=== PATIENT | male | born 1960 | race Caucasian/White ===

== ENCOUNTER → 2023-03-10 | Outpatient (CLI) | payer BC ==
--- NOTE | 2023-03-10 11:02 | CT ---
EXAMINATION TYPE: CT lumbar spine wo con DATE OF EXAM: 03/10/2023 COMPARISON: X-ray 02/24/2023 HISTORY: Other spondylosis with radiculopathy CT DLP: 1064.80 mGycm CONTRAST: None TECHNIQUE: CT of the lumbar spine is performed on a spiral scan at 3 mm thick sections. Reconstructed images are performed in the coronal and sagittal planes. FINDINGS: T12-L1: No focal disc herniation or significant disc bulge is evident. No spinal canal stenosis or neural foraminal stenosis is present. L1-L2: Broad-based disc bulge is present with moderate anterior thecal sac flattening. No AP spinal c anal stenosis is present. Neural foramen are patent. L2-L3: Minimal disc bulge has anterior thecal sac flattening. No AP spinal canal stenosis is present. Neural foramen are patent. L3-L4: Broad-based disc bulge has mild anterior thecal sac flattening. Disc material has some extensi on beyond the L4 endplate. Facet hypertrophy and ligamentum flavum laxity is present with some meat service team member ior lateral thecal sac compression. There is some mild canal narrowing. Moderate bilateral foraminal stenosis is present. L4-L5: Minimal grade 1 spondylolisthesis is present. Disc uncovering is present with moderate anterio r thecal sac compression. Facet hypertrophy and ligamentum flavum laxity are contributing to spinal c anal stenosis predominantly within the lateral dimension. Moderate right and left foraminal stenosis is present. L5-S1: No focal disc herniation or significant disc bulge is evident. No spinal canal stenosis or n eural foraminal stenosis is present IMPRESSION: 1. Spondylolisthesis of L4 anterior on L5 with disc uncovering. 2. Disc uncovering with facet hypertrophy and ligamentum flavum laxity at L4-5 contributing to spinal canal stenosis, greater in the lateral dimension. 3. Mild spinal canal narrowing L3-4 due to disc bulging and facet hypertrophy. 4. Foraminal stenosis L3-4 L4-5 bilaterally
== END | disposition home or self-care (01) ==
LOC: RADCTMAIN 07:58
PROVIDERS: ATTEND Orthopaedic Surgery
DX: M47.26 Other spondylosis with radiculopathy, lumbar region (principal); M43.16 Spondylolisthesis, lumbar region; M51.16 Intervertebral disc disorders with radiculopathy, lumbar region; M99.73 Connective tissue and disc stenosis of intervertebral foramina of lumbar region
CPT/HCPCS: 72131

== ENCOUNTER → 2023-08-11 | Outpatient (CLI) | payer BC ==
[2023-08-11 15:01] LABS: ALT 45 U/L (10-49); AST 24 U/L (14-35); Albumin 4.6 g/dL (3.8-4.9); Alkaline Phosphatase 54 U/L (41-126); BUN/Creat Ratio 14.75 Ratio (12.00-20.00); Blood Urea Nitrogen 11.8 mg/dL (9.0-27.0); Calcium 9.9 mg/dL (8.7-10.3); Carbon Dioxide 22.6 mmol/L (21.6-31.8); Chloride 104 mmol/L (96-109); Glucose 157 mg/dL (70-110); Potassium 4.8 mmol/L (3.5-5.5); Sodium 140 mmol/L (135-145); Total Bilirubin 0.4 mg/dL (0.3-1.2); Total Protein 6.6 g/dL (6.2-8.2)
[2023-08-11 16:34] LABS: HCT 47.4 % (39.6-50.0); HGB 15.3 g/dL (13.0-17.0); MCHC 32.3 g/dL (32.0-37.0); MCV 86.8 FL (80.0-97.0); Mean Platelet Volume 10.5 FL (9.5-12.2); NRBC Per 100 WBC 0 X 10*3/uL (0.00-0.01); Platelet Count 197 X 10*3/uL (140-440); RBC 5.46 X 10*6/uL (4.40-5.60); WBC 9.56 X 10*3/uL (4.50-10.00)
[2023-08-11 20:13] LABS: INR 1.01 sec (0.93-1.11); Prothrombin Time 10.9 sec (9.9-11.9)
== END | disposition home or self-care (01) ==
LOC: LABWHC1 10:21
PROVIDERS: ATTEND Orthopaedic Surgery
DX: M43.16 Spondylolisthesis, lumbar region (principal); M47.26 Other spondylosis with radiculopathy, lumbar region; M48.061 Spinal stenosis, lumbar region without neurogenic claudication
CPT/HCPCS: 36415; 80053; 82306; 85027; 85610

== ENCOUNTER → 2023-08-11 | Outpatient (CLI) | payer BC | END | disposition home or self-care (01) | LOC: LABPAT 10:28 | PROVIDERS: ATTEND Orthopaedic Surgery | DX: Z01.812 Encounter for preprocedural laboratory examination (principal); Z22.322 Carrier or suspected carrier of Methicillin resistant Staphylococcus aureus; M43.16 Spondylolisthesis, lumbar region; M47.26 Other spondylosis with radiculopathy, lumbar region; M48.061 Spinal stenosis, lumbar region without neurogenic claudication | CPT/HCPCS: 86850; 86900; 86901; 87070 ==

== ENCOUNTER 2023-08-18 09:24 | Observation (INO) | payer BC ==
[2023-08-11 11:40] VITALS: BMI 29.2
--- NOTE | 2023-08-18 07:41 | P.HPOR ---
History of Present Illness H&P Date: 08/11/23 .D:Date: 08/11/23 : 09:04am .T:Title: [facility] History and Physical Date of :60 [id number]: NKDA Age: 63 year Height: 5'9" Weight: 200 lbs BMI: 29.53 kg/m2 Occupation: Retired VAS: 3 Hand:Right IMPRESSION: It was my pleasure to have seen and examined Xavi. I reviewed the patient's clinical syndrome, physical findings, and imaging studies during the appointment today. It is my impression that the patient has a diagnosis of. 1. Grade I spondylolisthesis of L4 on L5 2. L4-5 spondylosis and stenosis 3. Right lower extremity radiculopathy 4. Low back pain I outlined the natural course history without intervention and various interventional options. Spine Surgery Risk Review Mr. Smith is presenting for evaluation of low back and right lower extremity pain, right lower extremity numbness and tingling. It was my pleasure to have seen and examined Mr. Smith. In our visit today we have had a chance to go over subjective complaints, physical examination findings and treatments including the natural course history without intervention and various interventional options. The patients imaging demonstrates: XRay Lumbar Multiview (AP, Lateral, Flexion, Extension) with AP pelvis; 5 views taken at [facility] on 02/24/23: - Images re-reviewed with the patient today. moderate multilevel spondylitic and degenerative changes with preserved alignment. Multilevel diminished disc height. Grade 1 retrolisthesis L1 onto L2. Grade 1 anterolisthesis L4 and L5. Vertebral body heights are preserved. No acute osseous abnormalities. Pelvis: The visualized sacrum and iliac wings are within normal limits. MRI scancompleted at [id number]/23 [facility]: - Images re-reviewed with the patient today. Impression: 1. L1-L2: 2-3 mm broad-based disc herniation effaces the ventral surface of the thecal sac resulting in moderate bilateral neural foraminal encroachment and bilateral exiting L1 nerve impingement conjunction with facet arthrosis. Mild canal stenosis is seen. 2. L2-L3: 2 mm left paracentral disc herniation effaces the ventral surface of the thecal sac resulting in mild left neural foraminal encroachment left exiting L2 nerve impingement in conjunction with facet arthrosis. 3. L3-L4: Posterior annular tears seen within the intravertebral disc. 3-4 mm broad-based disc herniation effaces the ventral surface of the thecal sac resulting in moderate to severe bilateral neural foraminal encroachment and bilateral exiting L3 nerve impingement in conjunction with facet arthrosis. Mild canal stenosis is seen. 4. L4-L5: Grade 1 anterolisthesis is seen. 5-6 mm broad-based disc herniation effaces the ventral surface of the thecal sac resulting in severe bilateral neural foraminal encroachment and bilateral exiting L4 nerve impingement conjunction with facet arthrosis. Moderate canal stenosis is seen. 5. L5-S1: 2 mm annular bulge effaces the ventral surface of the thecal sac without evidence of central canal or the main foraminal stenosis. Facet arthrosis seen. 6. No significant interval change in the inferior table disc pathology. CT [facility]: images reviewed with the patient.This demonstrates a grade 1 spondylolisthesis L4 and L5 which is partially reduced on the supine film.There is disc herniation associated with this.This bilateral foraminal stenosis which is moderate to severe secondary to facet hypertrophy facet osteophytosis as well as ligamental hypertrophy. No acute fracture noted parties elongation noted with osteophyte formation. 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 No acute fractures otherwise noted lumbar lordosis fairly well maintained within PI. On physical exam, Mr. Smith demonstrates: A continued ache-like, sharp pain throughout the low back that radiates down into the right lower extremity. He states his right leg pain is associated with numbness and tingling. He notes his symptoms have worsened over the last 3 to 4 weeks. He states his symptoms are exacerbated by all activity, which makes it very difficult for him to complete many of his activities of daily living. The patient reports experiencing severe night time symptoms that wake him from sleep. He notes his symptoms have started to become unbearable. I have explained to the patient that as their condition progresses it will cause further neurological deficits and eventual paralysis. Based on the patients imaging, physical exam, and the rapid progression and disabling nature of their symptoms, at this time I recommend surgery in the form of a: L4-5 RIGHT tube side minimally invasive posteriorlateral and interbody fusion I discussed the risk and benefits of this procedure at length with Mr. Smith. The patient agreed to considered pursuing the procedure above mentioned. Prior to surgery, she should follow up with her PCP (Cardio, ID, IM etc) for clearance. Questions were invited and answered, and the patient wishes to proceed as outlined below. Currently, I am recommendin.L4-5 minimally invasive posteriorlateral and interbody fusion (RIGHT) 2.Review of surgical risks and benefits as well as an educational packet on the proposed surgical procedure. Risks: All surgical procedures come with inherent risks, including those related to positioning, anesthesia, intraoperative findings, and postoperative complications. It is important to understand that surgery does not come with any guarantee of a successful outcome as complications and adverse events are always possible. The patient was given a handout in office today discussing the surgical procedure and risks associated with the intervention, both of which were discussed with the patient. These risks include but are not limited to the following: * Experiencing same, different or even worse symptoms in back, neck, arms, or legs compared to before surgery. * Requiring further surgery or other forms of treatment presently or at some time in the future at same or other levels of the intended spine surgery. On an extreme but fortunately relatively rare basis severe complication such as blindness, stroke, heart attack, temporary and/or permanent nerve injury, paralysis, coma, or may occur, sometimes without known explanation. Surgical complications may include but are not limited to risk of infection, fluid accumulation in the surgical dissection site, including a seroma or hematoma, that requires additional surgery, wound drainage, bleeding, new numbness or weakness, vision changes/loss, spinal fluid leakage, non-healing and/or infected incision, headaches, difficulty or inability to swallow, hoarseness, hemopneumothorax, pneumothorax, impotence, retrograde ejaculation, vaginal dryness; injury to nerves, spinal cord, blood vessels, lymphatics or other vital organs (i.e., bowel injury, injury to the great vessels); h eterotopic bone formation; complications related to the hardware such as screws, rods, cages including misplaced hardware, device failure, instrumentation at the wrong spine level, hardware fracture/breakage, or hardware loosening; vertebral failure of the spinal column above or below the newly placed hardware; retained surgical instrumentations or devices and the need for further surgery. * Medical risks of the planned spine surgery include but are not limited to generalized Infections to the whole body or local areas outside of the surgical site (sepsis), heart attack, bleeding, anaphylaxis, meningitis, seizure, epilepsy, hearing loss, burn urrutia, laceration of the head or other areas of the body, bruising, hypersensitivity of the skin, bladder over distension; allergic reaction; shoulder injury related to positioning; fat, blood and air clots to other areas of the body like heart, lungs, brain; failure of internal organs such as lungs, kidneys, liver and excessive bleeding. If blood transfusions are necessary, note that transfusions may cause intolerance reactions such as anaphylaxis or other complex reactions. Despite best efforts, the results of spine surgery might not heal in terms of bone, soft tissues such as skin, fascia, ligaments, and joints. Additionally, in order to achieve best possible results, spine surgery may be carried out beyond the initially planned levels and involve decompression, fusion including insertion of hardware at levels other than the original intended area of surgical interest change some portions of the procedure in order to ensure the best possible outcomes. With spine surgery and spinal fusion, there are different off label uses of instrumentation (devices, implants and hardware) as well as biological substances (bone morphogenic proteins, demineralized bone matrix) as well as using extra bone from allograft sources (i.e. cadaver bone) or autograft (iliac crest bone, ribs, or the spine itself). The patient has been given information about these practices and their inherent risks and benefits. [facility] is an educational center that serves as a training facility for neurosurgical and orthopedic SALES ASSISTANT DISPLAYS and Nursing students. Physician assistants are medically trained surgical providers who function in the outpatient, inpatient, and operating room setting under the direct supervision of the attending surgeon. [facility] has multiple operating rooms with single and overlapping rooms running daily. They currently function under the required guidelines as produced by the [facility] with regards to the overlapping rooms and will continue to comply with changes to this policy as they occur. The requirements include and are complied with as follows: (1) the critical portions of the overlapping rooms will not occur at the same time, (2) the attending physician will be physically present during the critical portions of the procedure and immediately available during the entire case, and (3) a back-up attending is designated should the primary attending not be immediately available. The patient has had a chance to review all the listed information, has been given print outs detailing this information, and has had all his/her questions answered to their satisfaction. It was my pleasure to have seen and examined Mr. Smith. In our visit today we have had a chance to go over my understanding of our patient's current condition, the natural course history without intervention and various interventional options. Questions were invited and answered, and the patient wishes to proceed as outlined above. I have seen and examined the patient for 25 minutes and we have spent more than 50% of the time in repeat and detailed counseling about the patient's condition, its natural course history with out and as much as can be predicted with surgery and re-review of various surgical treatment options. In conclusion, Mr. Smith requested we proceed with the above suggested surgery and are willing to accept risks and limitations of the suggested surgery as nature of the disease process and our best attempts at treatment for the condition. Thank you again for allowing us to be part of your patient's care. Please don't hesitate to contact me if you have any further questions. Follow-up: Post procedure Patient Education: (Informational booklet, instructions, etc) given at today's appointment: Yes .ED:Patient Education: Y Plan at next visit: X-ray of lumbar spine (AP/Lat) Medications Reviewed: YES In our visit today Mr. Smith and I have had a chance to go over my understanding of the patient's current condition, the natural course history without intervention and various interventional options. Questions were invited and answered, and the patient wishes to proceed as outlined above. I will be sure to keep you updated afterMr. Smith returns here for further follow-up. Thank you again for your referral. Please do not hesitate to contact me if you have any further questions. Signed and authenticated by: Romeo [facility] [address] [place] [address], [address] [address] This message is confidential, intended only for the named recipient(s) and may contain information that is privileged or exempt from disclosure under applicable law. If you are not the intended recipient(s), you are notified that the dissemination, distribution or copying of this information is strictly prohibited. If you received this message in error, please notify the sender then delete this message. Patient verbalizes understanding of the information discussed. The above note was initiated by Latrice Oliver, physician recording diploma dental assistant for Dr. Romeo Carrillo. This note has been reviewed by Dr. Carrillo, who has made his personal changes and impressions for this document. CC: Henrique Irizarry MD # SIGNED BY Romeo Carrillo (GOO)08/14/2023 04:48PM Past Medical History Past Medical History: Coronary Artery Disease (CAD), Diabetes Mellitus, GERD/Reflux, Hyperlipidemia, Myocardial Infarction ([place]), Sleep Apnea/CPAP/BIPAP Additional Past Medical History / Comment(s): no cpap,back stenosis, 3 bulging discs,twisting of spine Last Myocardial Infarction Date:: 2015 History of Any Multi-Drug Resistant Organisms: None Reported Past Surgical History: Heart Catheterization With Stent Additional Past Surgical History / Comment(s): 2 cardiac stents,exploratory laparoscopic(not sure if appendix or gallbladder removed) Past Anesthesia/Blood Transfusion Reactions: Previous Problems w/ Anesthesia Additional Past Anesthesia/Blood Transfusion Reaction / Comment(s): agitation coming out of anesthesia,claustrophobic. no hx blood transfusion Date of Last Stent Placement:: 2015 Smoking Status: Former smoker - Past Family History Mother Family Medical History: No Reported History Medications and Allergies Home Medications Medication Instructions Recorded Confirmed Type Ascorbic Acid [Vitamin C] 1,000 mg PO DAILY 08/11/23 08/11/23 History Aspirin 81 mg PO DAILY 08/11/23 08/11/23 History Cholecalciferol [Vitamin D3 (25 25 mcg PO DAILY 08/11/23 08/11/23 History Mcg = 1000 Iu)] FLUoxetine HCL [PROzac] 20 mg PO QAM 08/11/23 08/11/23 History Famotidine [Pepcid] 20 mg PO DAILY PRN 08/11/23 08/11/23 History Gabapentin [Neurontin] 300 mg PO BID 08/11/23 08/11/23 History HYDROcodone/APAP 10-325MG [[place] 1 tab PO TID PRN 08/11/23 08/11/23 History 10-325] Metoprolol Succinate (ER) [Toprol 50 mg PO QAM 08/11/23 08/11/23 History Xl] Multivitamins, Thera [Multivitamin 1 tab PO DAILY 08/11/23 08/11/23 History (formulary)] Nitroglycerin Sl Tabs [Nitrostat] 0.4 mg SUBLINGUAL Q5M PRN 08/11/23 08/11/23 History Rosuvastatin [Crestor] 20 mg PO HS 08/11/23 08/11/23 History Ubidecarenone [Coenzyme Q10] 100 mg PO DAILY 08/11/23 08/11/23 History lisinopriL [Zestril] 5 mg PO QAM 08/11/23 08/11/23 History metFORMIN HCL ER [Glucophage XR] 1,000 mg PO DAILY@1000 08/11/23 08/11/23 History Allergies Allergy/AdvReac Type Severity Reaction Status Date / Time bacitracin Allergy blisters Verified 08/11/23 11:01 [From Neosporin ([id number])] neomycin Allergy blisters Verified 08/11/23 11:01 [From Neosporin ([id number])] omeprazole [From Prilosec] Allergy severe marybeth Verified 08/11/23 11:14 foot pain polymyxin B Allergy blisters Verified 08/11/23 11:01 [From Neosporin ([id number])] Physical Examination Osteopathic Statement: *. No significant issues noted on an osteopathic st ructural exam other than those noted in the History and Physical/Consult.
[~2023-08-18 09:24] MED LIST: ACETAMINOPHEN TAB 500 MG TAB PO PRN; DEXAMETHASONE SOD PHOSPHATE 4 MG/ML 1 ML VIAL IV ONE; GABAPENTIN 300 MG CAP PO PRN; HYDROmorphone 0.5 MG/0.5 ML SYRINGE IVP PRN; LIDOCAINE 1% (10MG/ML) FOR IV START INTRADERMA PRN; ONDANSETRON 4 MG/2 ML VIAL IVP PRN; SCOPOLAMINE 1 MG/72 HR PATCH TRANSDERM ONE; TRANEXAMIC 1,000 MG/100ML-NACL 1,000 MG in SALINE 1 100ML.BAG IVPB PRN; droPERidol 5 MG/2 ML VIAL IVP ONE
[2023-08-18 10:19] LABS: Glucose,Whole Blood 144 mg/dL (70-110)
[2023-08-18] MEDS: LACTATED RINGERS 1,000 ML IV SCH (10:19)
[2023-08-18] MEDS ORDERED: NEOSTIGMINE 1 MG/ML 10 ML VIAL ONE (10:31)
[2023-08-18] MEDS ORDERED: HYDROmorphone (PF) 1 MG/ML ONE (10:31)
[2023-08-18] MEDS ORDERED: PROPOFOL 10 MG/ML 20 ML VIAL IV ONE (10:31)
[2023-08-18] MEDS ORDERED: fentaNYL (PF) 50 MCG/ML 2 ML AMP ONE (10:31)
[2023-08-18] MEDS ORDERED: ROCURONIUM 10 MG/ML (5 ML VIAL) IV ONE (10:31)
[2023-08-18] MEDS ORDERED: MIDAZOLAM 2 MG/2 ML VIAL ONE (10:31)
[2023-08-18] MEDS ORDERED: ePHEDrine 50 MG/ML 1 ML VIAL ONE (10:31)
[2023-08-18] MEDS ORDERED: KETAMINE HCL IN 0.9 % NACL 50 MG/5 ML SYRINGE ONE (10:31)
[2023-08-18] MEDS ORDERED: GLYCOPYRROLATE 0.2 MG/ML 2 ML VIAL ONE (10:31)
[2023-08-18] MEDS ORDERED: PHENYLEPHRINE-0.9% NACL SYG 1,000 MCG/10 ML SYRINGE ONE (10:31)
[2023-08-18] MEDS ORDERED: SUCCINYLCHOLINE CHLORIDE 200 MG/10 ML VIAL IV ONE (10:31)
[2023-08-18] MEDS ORDERED: TRANEXAMIC 1,000 MG/100ML-NACL PREMIX BAG ONE (10:31)
[2023-08-18] MEDS ORDERED: GELATIN SPONGE,ABSORB (LARGE) 1 EACH SPONGE TOPICAL ONE (11:19)
[2023-08-18] MEDS ORDERED: THROMBIN (BOVINE) 5,000 UNIT VIAL TOPICAL ONE (11:20)
[2023-08-18] MEDS ORDERED: LIDOCAINE 2%-EPI 1:100,000 20 ML VIAL SQ ONE (13:16)
[2023-08-18] MEDS ORDERED: BUPIVACAINE (PF) 0.5% 30 ML VIAL SQ ONE (13:16)
[2023-08-18] MEDS ORDERED: HYDROcodone/APAP 5-325MG 1 EACH TAB PO PRN (13:38)
[2023-08-18] MEDS ORDERED: SENNOSIDES-DOCUSATE SODIUM 1 EACH TAB PO PRN (13:38)
[2023-08-18] MEDS ORDERED: CYCLOBENZAPRINE 5 MG TAB PO PRN (13:38)
[2023-08-18] MEDS ORDERED: HYDROmorphone 1 MG/ML 1 ML SYRINGE IVP PRN (13:38)
[2023-08-18] MEDS ORDERED: MAGNESIUM HYDROXIDE 2,400 MG/30 ML CUP PO PRN (13:38)
[2023-08-18 14:23] LABS: Glucose,Whole Blood 218 mg/dL (70-110)
--- NOTE | 2023-08-18 14:25 | FL ---
EXAMINATION TYPE: FL guidance operating room, XR lumbar spine 2 or 3V DATE OF EXAM: 08/18/2023 CLINICAL HISTORY: Low back pain TECHNIQUE: Fluoroscopy. Intraoperative 2 views lumbar spine. COMPARISON: Prior lumbar spine x-ray February 24, 2023. FINDINGS: Fluoroscopic guidance was provided during minimally invasive lumbar fusion surgical proced ure performed by Dr. Carrillo. A total of 51 seconds of fluoroscopic time was utilized during the procedure and 4 spot images was acquired. Total dose area product (DAP) in uGy*m?, mGy*cm? (or simil ar: 4536.66. Images acquired show bilateral posterior interpedicular rods and screws and metallic disc material at L4-L5 level. IMPRESSION: As Above.
[2023-08-18] MEDS: HYDROcodone/APAP 10-325MG 1 EACH TAB PO PRN ×2 (14:51→21:16)
[2023-08-18] MEDS: HYDROmorphone 0.5 MG/0.5 ML SYRINGE IVP PRN (16:04)
[2023-08-18] MEDS: GABAPENTIN 300 MG CAP PO SCH ×2 (16:08→20:25)
[2023-08-18 16:36] LABS: Glucose,Whole Blood 232 mg/dL (70-110)
[2023-08-18] MEDS: ACETAMINOPHEN TAB 325 MG TAB PO SCH (17:25)
[2023-08-18] MEDS ORDERED: DEXTROSE 50% SYRINGE 50 ML IVP PRN ×2 (17:49)
[2023-08-18] MEDS ORDERED: FAMOTIDINE 20 MG TAB PO PRN (17:50)
[2023-08-18] MEDS ORDERED: NITROGLYCERIN SL TABS 0.4 MG TAB SUBLINGUAL PRN (17:50)
[2023-08-18] MEDS ORDERED: CALCIUM CARBONATE 500 MG CHEWABLE PO PRN (17:51)
[2023-08-18 20:17] LABS: Glucose,Whole Blood 149 mg/dL (70-110)
[2023-08-18] MEDS: INSULIN ASPART (NovoLOG) 100 UNIT/ML VIAL SQ SCH (20:23)
[2023-08-18] MEDS ORDERED: ATORVASTATIN 40 MG TAB PO SCH (21:00)
[2023-08-19] MEDS: ACETAMINOPHEN TAB 325 MG TAB PO SCH ×3 (00:46→13:39)
[2023-08-19] MEDS: HYDROmorphone 0.5 MG/0.5 ML SYRINGE IVP PRN ×2 (03:34→08:26)
[2023-08-19] MEDS: HYDROcodone/APAP 10-325MG 1 EACH TAB PO PRN ×2 (05:28→13:22)
[2023-08-19 05:45] LABS: Glucose,Whole Blood 138 mg/dL (70-110)
[2023-08-19] MEDS: INSULIN ASPART (NovoLOG) 100 UNIT/ML VIAL SQ SCH ×2 (05:50→13:23)
--- NOTE | 2023-08-19 06:22 | CT ---
EXAMINATION TYPE: CT lumbar spine wo con DATE OF EXAM: 08/18/2023 10:13 PM COMPARISON: Prior CT lumbar spine March 10, 2023 HISTORY: s/p L4-L5 MIS PLIF CT DLP: 1242 mGycm Automated exposure control for dose reduction was used. Unenhanced CT of the lumbar spine was performed. Bone and soft tissue window settings are submitted as well as coronal and sagittal reconstructions. There are 5 lumbar type vertebra are redemonstrated. New bilateral posterior pedicular rods and screw s at L4-L5 level with metallic disc material is seen. Alignment is satisfactory at this level. Hardwa re position is satisfactory. Other findings stable. Persistent moderate disc space narrowing at L3-L4 level. Posterior disc herniation L3-L4 level with facet arthropathy effaces the anterior and posteri or lateral thecal sac on axial image 51 similar to prior. There is evidence of recent surgery with po sterior ill-defined fluid and some deep subcutaneous air along with overlying cortical oriented skin kiran. IMPRESSION: Postsurgical change L4-L5 level with satisfactory alignment. Hardware position grossly sa tisfactory
[2023-08-19 08:01] VITALS: RESP 18
[2023-08-19] MEDS: GABAPENTIN 300 MG CAP PO SCH (08:27)
[2023-08-19] MEDS ORDERED: MULTIVITAMINS, THERA 1 EACH TAB PO SCH (09:00)
[2023-08-19] MEDS ORDERED: FLUoxetine HCL 20 MG CAP PO SCH (09:00)
[2023-08-19] MEDS ORDERED: METOPROLOL SUCCINATE (ER) 50 MG TAB.ER.24H PO SCH (09:00)
[2023-08-19] MEDS ORDERED: CHOLECALCIFEROL 25 MCG (1000 IU) TABLET PO SCH (09:00)
[2023-08-19] MEDS ORDERED: NON FORMULARY DRUG (Ubidecarenone [Coenzyme Q10] 50 MG Capsule) PO SCH (09:00)
[2023-08-19] MEDS ORDERED: ASCORBIC ACID 500 MG TAB PO SCH (09:00)
[2023-08-19 09:59] LABS: Basophils % (A) 0 %; Eosinophils % (A) 0 %; HCT 42.2 % (39.0-53.0); HGB 13.6 gm/dL (13.0-17.5); Lymphocytes % (A) 17 %; MCHC 32.4 g/dL (31.0-37.0); MCV 89.4 fL (80.0-100.0); Mean Platelet Volume 8.7; Monocytes # (A) 0.8 k/uL (0-1.0); Monocytes % (A) 7 %; Neutrophils % (A) 74 %; Platelet Count 180 k/uL (150-450); RBC 4.71 m/uL (4.30-5.90); RDW 12.9 % (11.5-15.5); WBC 12.2 k/uL (3.8-10.6)
[2023-08-19 10:29] LABS: African American GFR (CKD) >90 (>60 ml/min/1.73 sqM); Anion Gap 9 mmol/L; Blood Urea Nitrogen 12 mg/dL (9-20); Carbon Dioxide 22 mmol/L (22-30); Chloride 105 mmol/L (98-107); Glucose 134 mg/dL (74-99); Non-African American GFR(CKD) >90 (>60 ml/min/1.73 sqM); Potassium 4.4 mmol/L (3.5-5.1); Sodium 136 mmol/L (137-145)
--- NOTE | 2023-08-19 10:46 | P.OP ---
Date of Procedure: 08/18/23 Preoperative Diagnosis: Current Active Problems Muscle atrophy of lower extremity (Acute) Lumbar back pain with radiculopathy affecting right lower extremity (Acute) Neural foraminal stenosis of lumbar spine (Acute) Spondylolisthesis at L4-L5 level (Acute) Postoperative Diagnosis: Current Active Problems Muscle atrophy of lower extremity (Acute) Lumbar back pain with radiculopathy affecting right lower extremity (Acute) Neural foraminal stenosis of lumbar spine (Acute) Spondylolisthesis at L4-L5 level (Acute) Procedure(s) Performed: L4-5 POSTERIORLATERAL AND INTERBODY FUSION L4-5 LAMINOFORAMINOTOMY FOR DECOMPRESSION AND CAGE PLACEMENT, RIGHT L4-5 INSTRUMENTATION L4-5 CAGE PLACEMENT USE OF [employer] NAVIGATION FOR SCREW PLACEMENT 08661, 24560, 87895, 53835, 60532 USE OF IONM USE OF IO MICROSCOPE ALL SCREWS TESTING >20 mA Implants: -AMADA EVEREST RODS AND SCREWS -GLOBUS SABLE CAGE 24AVC3-21 8 DEG -MAGNATOS, IFACTOR, ALLOCELL, ARTHROCELL, AUTOGRAFT Anesthesia: GETA Surgeon: Romeo Carrillo Oral Health Therapist #1: Slick Melo (WAS PRESENT AND ASSISTED WITH ALL ASPECTS OF THE CASE FROM POSITION TO CLOSURE) Estimated Blood Loss (ml): 50 IV fluids (ml): 1,100 Urine output (ml): 250 Pathology: none sent Condition: stable Disposition: PACU Indications for Procedure: Mr. Smith is presenting for evaluation of low back and right lower extremity pain, right lower extremity numbness and tingling. It was my pleasure to have seen and examined Mr. Smith. In our visit today we have had a chance to go over subjective complaints, physical examination findings and treatments including the natural course history without intervention and various interventional options. The patients imaging demonstrates: XRay Lumbar Multiview (AP, Lateral, Flexion, Extension) with AP pelvis; 5 views taken at [facility] on 02/24/23: - Images re-reviewed with the patient today. moderate multilevel spondylitic and degenerative changes with preserved alignment. Multilevel diminished disc height. Grade 1 retrolisthesis L1 onto L2. Grade 1 anterolisthesis L4 and L5. Vertebral body heights are preserved. No acute osseous abnormalities. Pelvis: The visualized sacrum and iliac wings are within normal limits. MRI scancompleted at [facility] /08/23 of [facility]: - Images re-reviewed with the patient today. Impression: 1. L1-L2: 2-3 mm broad-based disc herniation effaces the ventral surface of the thecal sac resulting in moderate bilateral neural foraminal encroachment and bilateral exiting L1 nerve impingement conjunction with facet arthrosis. Mild canal stenosis is seen. 2. L2-L3: 2 mm left paracentral disc herniation effaces the ventral surface of the thecal sac resulting in mild left neural foraminal encroachment left exiting L2 nerve impingement in conjunction with facet arthrosis. 3. L3-L4: Posterior annular tears seen within the intravertebral disc. 3-4 mm broad-based disc herniation effaces the ventral surface of the thecal sac re sulting in moderate to severe bilateral neural foraminal encroachment and bilateral exiting L3 nerve impingement in conjunction with facet arthrosis. Mild canal stenosis is seen. 4. L4-L5: Grade 1 anterolisthesis is seen. 5-6 mm broad-based disc herniation effaces the ventral surface of the thecal sac resulting in severe bilateral neural foraminal encroachment and bilateral exiting L4 nerve impingement conjunction with facet arthrosis. Moderate canal stenosis is seen. 5. L5-S1: 2 mm annular bulge effaces the ventral surface of the thecal sac without evidence of central canal or the main foraminal stenosis. Facet arthrosis seen. 6. No significant interval change in the inferior table disc pathology. CT [facility] from03/10/2023 of [facility]: images reviewed with the patient.This demonstrates a grade 1 spondylolisthesis L4 and L5 which is partially reduced on the supine film.There is disc herniation associated with this.This bilateral foraminal stenosis which is moderate to severe secondary to facet hypertrophy facet osteophytosis as well as ligamental hypertrophy. No acute fracture noted parties elongation noted with osteophyte formation. Degree of [place]'s disease noted as well at L4-L5. No acute fractures otherwise noted lumbar lordosis fairly well maintained within PI. On physical exam, Mr. Smith demonstrates: A continued ache-like, sharp pain throughout the low back that radiates down into the right lower extremity. He states his right leg pain is associated with numbness and tingling. He notes his symptoms have worsened over the last 3 to 4 weeks. He states his symptoms are exacerbated by all activity, which makes it very difficult for him to complete many of his activities of daily living. The patient reports experiencing severe night time symptoms that wake him from sleep. He notes his symptoms have started to become unbearable. I have explained to the patient that as their condition progresses it will cause further neurological deficits and eventual paralysis. Based on the patients imaging, physical exam, and the rapid progression and disabling nature of their symptoms, at this time I recommend surgery in the form of a: L4-5 RIGHT tube side minimally invasive posteriorlateral and interbody fusion I discussed the risk and benefits of this procedure at length with Mr. Smith. The patient agreed to considered pursuing the procedure above mentioned. Prior to surgery, she should follow up with her PCP (Cardio, ID, IM etc) for clearance. Questions were invited and answered, and the patient wishes to proceed as outlined below. Currently, I am recommendin.L4-5 minimally invasive posteriorlateral and interbody fusion (RIGHT) Description of Procedure: L4-L5 MIS TLIF TELMA The patient was seen and examined in the preoperative area. All preoperative protocols were followed. Informed consent was obtained, risks and benefits of the procedure were discussed at length. Risks including bleeding infection damage to the surrounding tissue and risk of reoperation were discussed with the patient. Risk of anesthesia up to and including was discussed with the patient. These are outlined in the risk review. They were willing to accept these risks and all the risks of surgery. The patient was given a weight-based dose of antibiotics in the form of 2 g Ancef. The patient was seen and evaluated by the anesthesia team who deemed them fit for surgery. The site was marked, the patient was willing to proceed with the procedure. The patient was transferred to the operative suite by the Department of anesthesia. They were then drifted off to sleep by the department anesthesia and GETA was performed. The patient tolerated this well. Alexander catheter was placed by nursing staff, a-traumatically. Once confirmation of lines and ventilation the patient was transferred to a prone Pepe table very carefully. All bony prominences including wrists, elbows, axilla, chest, hips, and thighs, and feet were padded very well. Special attention was paid to the genitalia, and these were padded accordingly. SCDs were placed on bilateral lower extremities and were connected. Arms were well padded and placed on arm boards up and out in the 90/90 position. Once in position, again we confirmed good ventilation capabilities and that lines were running appropriately. The p atients Lumbar spine was then exposed. 1010s were placed outlining the incision site. Standard alcohol was used to clean the incision site and allowed to dry. C-arm was used to needle localize the pedicles at L4-5 and bio-rima the patient and confirm level for incision which was marked with a skin marker. Operative briefing was performed with all teams and everyone in agreement to proceed. The patient was then prepped and draped in a normal sterile fashion. Timeout was then performed, and all parties agreed with the procedure to be performed. Skin nicks made and pins placed in the PSIS on the right for the [place] tracker. 3D Zheim spin was then registered and confirmed to be accurate. Navigated jamshidi and drill-guide were then used to target pedicles bilaterally at L4 and L5. Once accessed, wires were placed in their void. This was repeated at L5 bilaterally. Skin incision was then made along these wires and a perfect scalpel was used over the wire to create a path and measure screw length. Screws were then placed over wires on the contralateral side. Once the screw was at the back of the body wire was removed. The screws were confirmed to be in good position on AP and lateral. We then tested screws and they all tested above 20 mA. Attention was then turned to interbody fusion at L4-5. Tubular retractor system was placed at the interspace of L4-5 using a biplanar c arm. Once in position and dilated up to 26mm tube it was locked to the bed and confirmed in good position. Microscope was then brought in for visualization. Limited myomectomy was performed and laminectomy, complete facetectomy and foraminotomy performed at L4-5 using high speed wei and Kerrison rongeur. The ligamentum was removed and the dural sac decompressed. Exiting and traversing roots visualized and decompressed. Neural elements were then protected, and disc space accessed with an osteotome. Sequential shaving then done under lateral imaging and complete discectomy performed using deniz, pituitary and curettes. Once good bleeding endplates accomplished and good height islam with trials, a combination of autograft, allograft and synthetic placed anterior in the disc space. The cage was then selected and impacted into place under lateral imaging. The cage was then expanded restoring height, lordosis and alignment. The cage was backfilled with bone graft through a funnel. The preparation supervisor canning was removed and the area inspected. Good cage placement, stable cage and no injuries. Area was irrigated copiously, and meticulous hemostasis achieved. The tubular retractor was then removed under direct visualization. Screws were then selected and placed over the previously placed wires on the ipsilateral side. This was done in the fashion described above. Screws were then tested, and all tested above 20 mA. Shells were then placed on the tabs. Man length was then measured, and rods selected. They were then placed through the MIS tabs, subfascial and locked into L5 bilateral and sequentially reduced into L4 for listhesis reduction. These were then locked into place with set screws and finally tightened. Man holders removed and images taken showing good placement of rods, good lordosis and islam of height. Tabs were broken off. Wounds were then copiously irrigated with NSS. Brimhall used for TP decortication and mixture of MagnatOs, allograft and autograft packed posterolateral. Fascia was then closed with 0 Vircyl on a Scorpion suture passer for MIS closure. Deep subq closed with 0 Vicryl. Superficial subq closed with 2-0 Vicryl and skin with kiran. Wound edges approximated very well. Wound was then cleaned with alcohol and dried. Wounds dressed in Optifoam dressings. The patient was then transferred off the table back to their hospital bed a- traumatically. They were extubated by the department of anesthesia. They were then transferred to PACU in stable condition having tolerated the procedure with no complications.
[2023-08-19 11:41] LABS: Glucose,Whole Blood 166 mg/dL (70-110)
--- NOTE | 2023-08-19 12:52 | P.CONS ---
History of Present Illness - Reason for Consult Consult date: 08/19/23 Medical management, status post L4-5 fusion - History of Present Illness This is a pleasant 63-year-old male who was admitted under orthopedic services DR. Carrillo and is status post L4-5 fusion secondary to chronic back pain with 3 bulging disks and stenosis and had been having some ongoing numbness and tingling in the extremities. Patient reports he follows with Dr. Irizarry in the outpatient setting with a past medical history of coronary artery disease, diabetes, GERD, hyperlipidemia, previous heart catheterizations with stenting, former smoker. Patient denies any illicit drug use and rarely drinks alcohol. Patient reports he did go to his primary care provider for presurgical clearance. Patient reports has been up and walking with physical therapy and did well and reports to some discomfort and soreness of his back but is controlled on current pain regimen. Patient reports he is voiding and denies any bowel movements as of yet. Patient with incentive spirometer at the bedside encouraged to continue using at least 10 times every hour while awake including bringing home and continuing to use in the outpatient setting. All medications reviewed and resumed and patient was placed on Accu-Cheks with sliding scale for now and discussed with the patient about resuming home medications once dis charged. Patient reports he plans on possible discharge today. Review Of Systems: Constitutional: No fever, no chills, no night sweats. No weight change. No weakness, fatigue or lethargy. No daytime sleepiness. EENT: No headache. No blurred vision or double vision, no loss of vision. No loss of Hearing, no ringing in the ears, no dizziness. No nasal drainage or congestion. No epistaxis. No sore throat. Lungs: No shortness of breath, cough, no sputum production. No wheezing. Cardiovascular: No chest pain, no lower extremity edema. No palpitations. No paroxysmal nocturnal dyspnea. No orthopnea. No lightheadedness or dizziness. No syncopal episodes. Abdominal: No abdominal pain. No nausea, vomiting. No diarrhea. No constipation. No bloody or tarry stools.. No loss of appetite. Genitourinary: No dysuria, increased frequency, urgency. No urinary retention. Musculoskeletal: No myalgias. No muscle weakness, no gait dysfunction, no frequent falls. Reports back pain. No neck pain. Integumentary: No wounds, no lesions. No rash or pruritus. No unusual bruising. No change in hair or nails. Neurologic: No aphasia. No facial droop. No change in mentation. No head injury. No headache. No paralysis. No paresthesia. Psychiatric: No depression. No anxiety. No mood swings. Endocrine: No abnormal blood sugars. No weight change. No excessive sweating or thirst. No cold intolerance. PHYSICAL EXAMINATION: GENERAL: The patient is alert and oriented x4, Well developed, well nourished. HEENT: Pupils are round and equally reacting to light. EOMI. no scleral icterus. No conjunctival pallor. Normocephalic, atraumatic. No pharyngeal erythema. No thyromegaly. CARDIOVASCULAR: S1 and S2 muffled PULMONARY: diminished breath sounds bilaterally otherwise clear to auscultation with no wheezing or rhonchi noted. ABDOMEN: soft. Nontender on exam. obese. non-distended, normoactive bowel sounds. No palpable organomegaly. MUSCULOSKELETAL: No joint swelling or deformity. EXTREMITIES: No cyanosis, clubbing, or pedal edema. NEUROLOGICAL: Gross neurological examination did not reveal any focal deficits. SKIN: No rashes. Assessment: Status post L4-5 fusion secondary to spondylolisthesis with neural for mental stenosis of the lumbar spine and radiculopathy History of coronary artery disease with previous stenting [place] diabetes mellitus, type II, [id number] GERD Hyperlipidemia History of sleep apnea with no CPAP GI prophylaxis DVT prophylaxis Full code Plan: Recommend to continue with current medications and management per orthopedic services. Patient is L4-5 fusion with decompression Patient does have back brace in the room and has been instructed to use well up and ambulating. Patient reports has been working with physical therapy and did well reports he might be going home today Pain management and DVT prophylaxis per orthopedics Patient with incentive spirometer at the bedside encouraged the patient continue using at least 10 times every hour while awake including at home Home medications reviewed and resumed as appropriate. Recommend holding metformin for now and will continue with sliding scale with Accu-Cheks before meals and at bedtime Patient does have history of hypertension although monitoring for postoperative hypotension and will hold lisinopril for now and has been instructed to check blood pressures and resume medications when home patient is medically stable for discharge once cleared by orthopedics Thank you kindly for this consultation. We will continue to follow with orthopedics during hospitalization. The impression and plan of care has been dictated by Radha Randle, nurse practitioner as directed. Dr. Sandra MD I have performed a history and examination and MDM of this patient, discussed the same with the dictator, and agree with the dictator's assessment and plan as written ,documented as a scribe. Based on total visit time, I have performed more than 50% of the visit. Any additional findings or plans will be noted. Past Medical History Past Medical History: Coronary Artery Disease (CAD), Diabetes Mellitus, GERD/Reflux, Hyperlipidemia, Myocardial Infarction (RI), Sleep Apnea/CPAP/BIPAP Additional Past Medical History / Comment(s): no cpap,back stenosis, 3 bulging discs,twisting of spine Last Myocardial Infarction Date:: 2015 History of Any Multi-Drug Resistant Organisms: None Reported Past Surgical History: Heart Catheterization With Stent Additional Past Surgical History / Comment(s): 2 cardiac stents,exploratory laparoscopic(not sure if appendix or gallbladder removed) Past Anesthesia/Blood Transfusion Reactions: Previous Problems w/ Anesthesia Additional Past Anesthesia/Blood Transfusion Reaction / Comm: agitation coming out of anesthesia,claustrophobic. no hx blood transfusion Date of Last Stent Placement:: 2015 Past Psychological History: No Psychological Hx Reported Smoking Status: Former smoker Past Alcohol Use History: None Reported Additional Past Alcohol Use History / Comment(s): quit smoking 2016 started smoking at age 16,1 ppd Past Drug Use History: None Reported - Past Family History Mother Family Medical History: No Reported History Medications and Allergies Home Medications Medication Instructions Recorded Confirmed Type Ascorbic Acid [Vitamin C] 1,000 mg PO DAILY 08/11/23 08/11/23 History Aspirin 81 mg PO DAILY 08/11/23 08/11/23 History Cholecalciferol [Vitamin D3 (25 25 mcg PO DAILY 08/11/23 08/11/23 History Mcg = 1000 Iu)] FLUoxetine HCL [PROzac] 20 mg PO QAM 08/11/23 08/11/23 History Famotidine [Pepcid] 20 mg PO DAILY PRN 08/11/23 08/11/23 History Gabapentin [Neurontin] 300 mg PO BID 08/11/23 08/11/23 History HYDROcodone/APAP 10-325MG [Sharon 1 tab PO TID PRN 08/11/23 08/11/23 History 10-325] Metoprolol Succinate (ER) [Toprol 50 mg PO QAM 08/11/23 08/11/23 History XL] Multivitamins, Thera [Multivitamin 1 tab PO DAILY 08/11/23 08/11/23 History (formulary)] Nitroglycerin Sl Tabs [Nitrostat] 0.4 mg SUBLINGUAL Q5M PRN 08/11/23 08/11/23 History Rosuvastatin [Crestor] 20 mg PO HS 08/11/23 08/11/23 History Ubidecarenone [Coenzyme Q10] 100 mg PO DAILY 08/11/23 08/11/23 History lisinopriL [Zestril] 5 mg PO QAM 08/11/23 08/11/23 History metFORMIN HCL ER [Glucophage XR] 1,000 mg PO DAILY@1000 08/11/23 08/11/23 History Magnesium Hydroxide [Milk of 2,400 mg PO DAILY PRN ml 08/19/23 Rx Magnesia] Allergies Allergy/AdvReac Type Severity Reaction Status Date / Time bacitracin Allergy blisters Verified 08/18/23 09:40 [From Neosporin ([id number])] levofloxacin Allergy Nausea Verified 08/18/23 09:42 neomycin Allergy blisters Verified 08/18/23 09:40 [From Neosporin ([id number])] omeprazole [From Prilosec] Allergy severe marybeth Verified 08/18/23 09:40 foot pain polymyxin B Allergy blisters Verified 08/18/23 09:40 [From Neosporin ([id number])] Physical Exam Vitals: Vital Signs Temp Pulse Resp BP Pulse Ox 08/19/23 07:15 67 18 08/19/23 06:58 98.5 F 67 18 106/54 94 L 08/19/23 02:03 98.1 F 61 21 125/68 91 L 08/18/23 19:31 98.4 F 76 21 128/71 93 L 08/18/23 14:10 78 14 150/61 95 08/18/23 13:55 72 14 144/60 100 08/18/23 13:40 97.1 F L 78 14 157/64 97 Intake and Output 08/18/23 08/19/23 08/19/23 22:59 06:59 14:59 Intake Total 922 Output Total 175 900 Balance -175 22 Intake: Oral 922 Output: Urine 175 900 Other: Voiding Method Indwelling Catheter Indwelling Catheter Weight 91.6 kg Results CBC & Chem 7: 08/19/23 05:59 08/19/23 05:59 Labs: Abnormal Lab Results - Last 24 Hours (Table) 08/18/23 08/18/23 08/18/23 Range/Units 10:07 14:21 16:34 WBC (3.8-10.6) k/uL Neutrophils # (1.3-7.7) k/uL POC Glucose (mg/dL) 144 H 218 H 232 H (70-110) mg/dL 08/18/23 08/19/23 08/19/23 Range/Units 20:15 05:44 05:59 WBC 12.2 H (3.8-10.6) k/uL Neutrophils # 9.0 H (1.3-7.7) k/uL POC Glucose (mg/dL) 149 H 138 H (70-110) mg/dL
--- NOTE | 2023-08-19 13:42 | P.DS ---
Providers Date of admission: 08/18/2023 Expected date of discharge: 08/19/23 Attending physician: Romeo Carrillo DO Consults: 08/18/23 13:38 Consult Physician Routine Consulting Provider: Anmol Campos Consult Reason/Comments: medical management s/p L4-L5 MIS PLIF Do you want consulting provider notified?: Yes Primary care physician: Henrique Irizarry Hospital Course: Date of admission: 08/18/2023 Date of discharge: 08/19/2023 Admission diagnosis: L4-L5 spondylolisthesis; lumbar back pain; lower extremity radiculopathy Discharge diagnosis: Same Attending physician: Dr. Carrillo Surgical procedures: L4-L5 MIS PLIF Brief history: Patient is a 63-year-old male with a history of L4-L5 spinal listhesis; lower back pain. At this point patient has failed conservative treatment measures and has opted to proceed with a elective L4-L5 MIS PLIF. Hospital course: Details of patient's surgery can be found in operative report. Patient tolerated the procedure well and was subsequently transported to orthopedic floor. Patient's orthopeidc and medical care was provided daily. Patient had daily laboratory tests performed for evaluation of overall blood counts . Patient had daily physical therapy to include strengthening range of motion as well as education with walker ambulation. Patient was noted to have a relatively uneventful postoperative course. Patient reported satisfactory pain control with oral pain medications by postoperative day 1. Patient showed satisfactory progress with physical therapy. Patient moved steadily through the program and had no difficulty meeting the goals by postoperative day 1. Given patient's otherwise satisfactory course and having met physical therapy goals, plan is to discharge patient home on postoperative day 1. Discharge condition/disposition: Patient will be discharged home in stable condition. Discharge medications: Instructions are given on resumption of patient's normal daily medications per primary care recommendation, in addition patient will be prescribed oxycodone; senna; gabapentin; Duricef; Flexeril. Spine Discharge and Recovery Instructions Date of Surgery: 08/18/2023 Diagnosis: Low back pain and bilateral lower extremity radiculopathy; L4-L5 spondylolisthesis Procedure: L4-L5 MIS PLIF Medications: See medication list All medication refills should be obtained through your primary care doctor or your clinic spine surgeon. Please discuss prescription refills at your follow up appointment. Do not call the hospital for medication refills. Dressing: Leave your dressing in place for a total of 5 days post operatively. Then you may remove your dressing and leave open to air. Keep the area clean and if not able to keep area clean, then cover with sterile gauze and tape. Showering: You may shower 3 days after your procedure allowing soap and water to run over incision. Do not scrub. Do not soak. Blot dry. Follow up: Please confirm a follow up appointment with your surgeon 3 weeks post operatively. Please make an appointment to follow up with your PCP in 1-2 weeks after surgery for evaluation 3 phase, 3-week plan POST OP WEEKS 1-3 1. Lifting/carrying/pushing/pulling limited to less than 5 pounds. 2. Do not sit for longer than 15 minutes at one time. Get up and walk around. Prolonged sitting is NOT advised. If you lay down, see if you can tolerate laying down on you front (belly side) 3. Walk for periods of 15 minutes = 1 mile but no longer; do it multiple times times each day. 4. Ice your low back after activity. POST OP WEEKS 3-6 1. Lifting limited to less than 20 pounds. 2. Do not sit for longer than 30 minutes at a time. Frequently change positions. Use a sit-to stand workstation or take frequent breaks from sitting if you have returned to work. 3. Walk for 30 minutes each day. If possible, do these three or more times a day POST OP WEEKS 6+ At your 6-week appointment we will give you a physical therapy referral to focus on a core stabilization and strengthening program. You should also work on leg & buttock strengthening, hamstring & quadriceps stretching, and continue a low impact aerobic activity program such as swimming, walking, or riding a stationary bicycle. During the initial 6 weeks after your surgery, you are at the highest risk of re-injuring your spine. You should generally avoid BLTs (bending, lifting and twisting combination motions) and follow the above guidelines to reduce the chance of reinjury. You can anticipate post op appointments in our office at approximately 3 weeks and 6 weeks after your surgery. INCISION CARE: If your incision is not draining you do NOT need to cover it with a dressing. Keep your incision clean, dry and intact. In most cases, we apply skin glue, kiran or sutures to the incision at the time of surgery. This will be like a crust or have the appearance of a scab and will fall off in time on its own. The stitches or kiran need to be removed at 3 weeks post op appointment. You may begin to shower 3 days after surgery (this allows the glue to wu well). However, please avoid scrubbing the incision site or peeling off any of the skin glue. This will ensure optimal healing of your incision. Also, during this time avoid soaking the incision area in water - this includes swimming pools, hot tubs or baths. No ointments, lotions or oils on the incision until your surgeon allows. Leave kiran, sutures or glue in place. Neurological dysfunction that comes on suddenly can also be a sign of a stroke. Below some common symptoms of a stroke are listed: B - balance difficulty such as sudden onset walking or leaning to one side - NEW E - eye problem such as sudden double vision or trouble seeing on one side - NEW F - Facial weakness or numbness on one side - NEW A - Arm or leg weakness or numbness on one side - NEW S - Slurred speech or difficulty with word finding - NEW T - Time is BRAIN! Call 911 as soon as you recognize these symptoms Diet: Consume a regular diet rich in vegetables and lean protein such as chicken or fish. You should consume in a ratio of approximately 20% fats|40% carbohydrates|40%protein. Vegetables, sweet potatoes, brown rice or quinoa are examples of good carbohydrates. Chips, white bread, cookies and sweets/sugar are examples of bad carbohydrates. Limit your bad carbs, go wild with good carbs. "Life's Simple 7" Guidelines as per [place] [employer] These will help you reclaim your life after surgery and overhauler helper in your recovery, keeping in mind your restrictions. (1) Get Active. Physical activity can help people lose weight, control high blood pressure and cholesterol, feel emotionally better, and sleep better. (2) Control Cholesterol. Avoid a diet high in saturated fat, trans fat, & cholesterol. Limit whole milk & cream, ice cream, butter, egg yolks, processed meats (like sausage and hot dogs), and fatty meats. Choose healthy foods that are low in saturated fat, trans fat and cholesterol which include: Fruits and vegetables, fiber rich grain products (like whole grain pasta and brown rice), lean meat such as chicken, fish, nuts, seeds, and legumes. (3) Eat Better. Eat small portions. Shop at the grocery with a list and do not stray from it. Tips for a healthy diet include: Limit sodium intake to less than 1500mg daily, avoid prepackaged, processed, and fast foods, choose a diet rich in fruits, vegetables, and whole grain, high fiber foods, and limit saturated & cholesterol in your diet. (4) Manage Blood Pressure. If you have high blood pressure, you should have a cuff at home so that you can check your blood pressure regularly. Be sure you have a good cuff. An arm one is generally better than a wrist one. Bring the cuff to a doctor's appointment to validate that the measurements that your cuff are taking are accurate. Take your blood pressure twice daily when you are sitting down and relaxing. Record the numbers in a log and bring this log with you to your doctors' appointments. (5) Lose Weight if your BMI is above 25. A healthy BMI is between 19-25. To calculate Your BMI, you may use a Standard BMI Calculator on the NIH BMI website: <www.nhlbi.nih.gov/guidelines/obesity/BMI/bmicalc.htm>. Weigh oneself daily. If you are overweight, set a goal to lose weight. A pound a week loss if needed is a good target. (6) Reduce Blood Sugar. Limit foods and liquids with "added sugars." (Added sugars include sucrose, fructose, glucose, maltose, dextrose, high fructose corn syrup, corn syrup, concentrated fruit juice and honey). (7) Stop Smoking. If you smoke, quitting smoking is one of the best things that you can do for your health. Smoking increases your risk of heart attack, stroke, and peripheral vascular disease, which is a build-up of plaque in your arteries. Please discard all the cigarettes and lighters in your house. Have a plan for what you will do when you have the urge to smoke. Direct and second- hand smoke shortens your life as well as the lives of your family, friends and others around you. For your health and the health of those around you, please consider quitting! Proper Bending Body Mechanics: Maintain a wide stance with one foot slightly in front of the other. Keep your back straight. Bend utilizing the strength in your hips and knees. Do not bend at the waist. Maintain the lifted object at your waist-level close to your body. Avoid lifting weight that causes immediately pain or pain anywhere in the body afterwards. Smoking/Nicotine If there was ever one thing that you could do to increase your overall health, decrease your risk of cardiovascular problems by about 39% the second you make the choice, it is to STOP SMOKING. Your body's most instant gratification is the second you stop smoking. We have all heard the studies, read the articles but it is true, smoking is extremely bad for your overall health, and moreover it is detrimental to your bone health. Nicotine, IN ANY FORM, kills bone cells, prevents your body from healing fractures, and significantly prolongs healing after surgery. In spine surgery specifically, it increases your risk of not healing your bones to create a fusion and increases your risk of having a revision surgery due to this up to 60%. I know it is hard. I know it feels impossible. But there are ways. Take control of your life. We are here to help you through it. And when you are ready, ask us and we can direct you to help if you desire. Use the START Plan to Quit Smoking (please visit the Helpguide.org website listed below for more information): S = Set a quit date. Choose a date within the next 2 weeks, so you have enough time to prepare without losing your motivation to quit. If you mainly smoke at work, quit on the weekend, so you have a few days to adjust to the change. T = Tell family, friends, and co-workers that you plan to quit. Let your friends and family in on your plan to quit smoking and tell them you need their support and encouragement to stop. Look for a quit zachery who wants to stop smoking as well. You can help each other get through the rough times. A = Anticipate and plan for the challenges you'll face while quitting. Most people who begin smoking again do so within the first 3 months. You can help yourself make it through by preparing ahead for common challenges, such as nicotine withdrawal and cigarette cravings. R = Remove cigarettes and other tobacco products from your home, car, and work. Throw away all your cigarettes (no emergency pack!), lighters, ashtrays, and matches. Wash your clothes and freshen up anything that smells like smoke. Shampoo your car, clean your drapes and carpet, and steam your furniture. T = Talk to your doctor about getting help to quit. Your doctor can prescribe medication to help with withdrawal and suggest other alternatives. If you can't see a doctor, you can get many products over the counter at your local pharmacy or grocery store, including the nicotine patch, nicotine lozenges, and nicotine gum. Resources for Quitting Smoking: <https://www.[place].gov/documents/[facility]/Quit_Tobacco_Resources_for_patients_313 480_7.pdf> Supplementation: Take recommended dosages of Vitamin D and Calcium to help fortify your bones and help them to heal. See your health maintenance packet for dosages and recommended levels. DVT/VTE prophylaxis: You will be given compression stockings from the hospital. Wear these daily for the first two weeks after surgery. You may take them off at night. You may be prescribed a medication to help thin your blood. Take this as directed. If you are not prescribed this medication, early and frequent ambulation has been shown to be the best prophylaxis to deep vein thrombosis and sequelae related to this event. Assessment: L4-L5 anterolisthesis; right lower extremity radiculopathy; low back pain Procedures: L4-L5 PLIF Patient Condition at Discharge: Good Plan - Discharge Summary Discharge Rx Participant: No New Discharge Prescriptions: New Cyclobenzaprine [Flexeril] 10 mg PO TID #21 tab Sennosides/Docusate Sodium [Senna Plus 8.6-50 mg Softgel] 1 each PO DAILY #20 capsule Magnesium Hydroxide [Milk of Magnesia] 2,400 mg PO DAILY PRN ml PRN Reason: Constipation cefaDROXiL [Duricef] 500 mg PO Q12HR 5 Days #10 cap Gabapentin 300 mg PO TID #30 cap oxyCODONE-APAP 7.5-325MG [Percocet 7.5-325 mg] 1 tab PO Q6HR PRN #28 tab PRN Reason: Pain Continue Aspirin 81 mg PO DAILY Ubidecarenone [Coenzyme Q10] 100 mg PO DAILY Gabapentin [Neurontin] 300 mg PO BID Multivitamins, Thera [Multivitamin (formulary)] 1 tab PO DAILY lisinopriL [Zestril] 5 mg PO QAM Rosuvastatin [Crestor] 20 mg PO HS metFORMIN HCL ER [Glucophage XR] 1,000 mg PO DAILY@1000 Nitroglycerin Sl Tabs [Nitrostat] 0.4 mg SUBLINGUAL Q5M PRN PRN Reason: Chest Pain Cholecalciferol [Vitamin D3 (25 Mcg = 1000 Iu)] 25 mcg PO DAILY Ascorbic Acid [Vitamin C] 1,000 mg PO DAILY Metoprolol Succinate (ER) [Toprol XL] 50 mg PO QAM Famotidine [Pepcid] 20 mg PO DAILY PRN PRN Reason: Heartburn FLUoxetine HCL [PROzac] 20 mg PO QAM HYDROcodone/APAP 10-325MG [Circle 10-325] 1 tab PO TID PRN PRN Reason: Pain Discharge Medication List Ascorbic Acid [Vitamin C] 1,000 mg PO DAILY 08/11/23 [History] Aspirin 81 mg PO DAILY 08/11/23 [History] Cholecalciferol [Vitamin D3 (25 Mcg = 1000 Iu)] 25 mcg PO DAILY 08/11/23 [History] FLUoxetine HCL [PROzac] 20 mg PO QAM 08/11/23 [History] Famotidine [Pepcid] 20 mg PO DAILY PRN 08/11/23 [History] Gabapentin [Neurontin] 300 mg PO BID 08/11/23 [History] HYDROcodone/APAP 10-325MG [Circle 10-325] 1 tab PO TID PRN 08/11/23 [History] Metoprolol Succinate (ER) [Toprol XL] 50 mg PO QAM 08/11/23 [History] Multivitamins, Thera [Multivitamin (formulary)] 1 tab PO DAILY 08/11/23 [History] Nitroglycerin Sl Tabs [Nitrostat] 0.4 mg SUBLINGUAL Q5M PRN 08/11/23 [History] Rosuvastatin [Crestor] 20 mg PO HS 08/11/23 [History] Ubidecarenone [Coenzyme Q10] 100 mg PO DAILY 08/11/23 [History] lisinopriL [Zestril] 5 mg PO QAM 08/11/23 [History] metFORMIN HCL ER [Glucophage XR] 1,000 mg PO DAILY@1000 08/11/23 [History] Cyclobenzaprine [Flexeril] 10 mg PO TID #21 tab 08/19/23 [Rx] Gabapentin 300 mg PO TID #30 cap 08/19/23 [Rx] Magnesium Hydroxide [Milk of Magnesia] 2,400 mg PO DAILY PRN ml 08/19/23 [Rx] Sennosides/Docusate Sodium [Senna Plus 8.6-50 mg Softgel] 1 each PO DAILY #20 capsule 08/19/23 [Rx] cefaDROXiL [Duricef] 500 mg PO Q12HR 5 Days #10 cap 08/19/23 [Rx] oxyCODONE-APAP 7.5-325MG [Percocet 7.5-325 mg] 1 tab PO Q6HR PRN #28 tab 08/19/23 [Rx] Follow up Appointment(s)/Referral(s): Romeo Carrillo DO [Doctor of Osteopathic Medicine] - 2 Weeks Activity/Diet/Wound Care/Special Instructions: Spine Discharge and Recovery Instructions Date of Surgery: 08/18/2023 Keep dressings clean, dry, intact. Dressings may be removed on 08/23/2023. Okay to shower directly over incision was dressings are removed. No soaking dressing Diagnosis: Low back pain; lower extremity radiculopathy; L4-L5 spondylolisthesis Procedure: L4-L5 MIS PLIF Medications: See medication list All medication refills should be obtained through your primary care doctor or your clinic spine surgeon. Please discuss prescription refills at your follow up appointment. Do not call the hospital for medication refills. Dressing: Leave your dressing in place for a total of 5 days post operatively. Then you may remove your dressing and leave open to air. Keep the area clean and if not able to keep area clean, then cover with sterile gauze and tape. Showering: You may shower 3 days after your procedure allowing soap and water to run over incision. Do not scrub. Do not soak. Blot dry. Follow up: Please confirm a follow up appointment with your surgeon 3 weeks post operatively. Please make an appointment to follow up with your PCP in 1-2 weeks after surgery for evaluation 3 phase, 3-week plan POST OP WEEKS 1-3 1. Lifting/carrying/pushing/pulling limited to less than 5 pounds. 2. Do not sit for longer than 15 minutes at one time. Get up and walk around. Prolonged sitting is NOT advised. If you lay down, see if you can tolerate laying down on you front (belly side) 3. Walk for periods of 15 minutes = 1 mile but no longer; do it multiple times times each day. 4. Ice your low back after activity. POST OP WEEKS 3-6 1. Lifting limited to less than 20 pounds. 2. Do not sit for longer than 30 minutes at a time. Frequently change positions. Use a sit-to stand workstation or take frequent breaks from sitting if you have returned to work. 3. Walk for 30 minutes each day. If possible, do these three or more times a day POST OP WEEKS 6+ At your 6-week appointment we will give you a physical therapy referral to focus on a core stabilization and strengthening program. You should also work on leg & buttock strengthening, hamstring & quadriceps stretching, and continue a low impact aerobic activity program such as swimming, walking, or riding a stationary bicycle. During the initial 6 weeks after your surgery, you are at the highest risk of re-injuring your spine. You should generally avoid BLTs (bending, lifting and twisting combination motions) and follow the above guidelines to reduce the chance of reinjury. You can anticipate post op appointments in our office at approximately 3 weeks and 6 weeks after your surgery. INCISION CARE: If your incision is not draining you do NOT need to cover it with a dressing. Keep your incision clean, dry and intact. In most cases, we apply skin glue, kiran or sutures to the incision at the time of surgery. This will be like a crust or have the appearance of a scab and will fall off in time on its own. The stitches or kiran need to be removed at 3 weeks post op appointment. You may begin to shower 3 days after surgery (this allows the glue to wu well). However, please avoid scrubbing the incision site or peeling off any of the skin glue. This will ensure optimal healing of your incision. Also, during this time avoid soaking the incision area in water - this includes swimming pools, hot tubs or baths. No ointments, lotions or oils on the incision until your surgeon allows. Leave kiran, sutures or glue in place. Neurological dysfunction that comes on suddenly can also be a sign of a stroke. Below some common symptoms of a stroke are listed: B - balance difficulty such as sudden onset walking or leaning to one side - NEW E - eye problem such as sudden double vision or trouble seeing on one side - NEW F - Facial weakness or numbness on one side - NEW A - Arm or leg weakness or numbness on one side - NEW S - Slurred speech or difficulty with word finding - NEW T - Time is BRAIN! Call 911 as soon as you recognize these symptoms Diet: Consume a regular diet rich in vegetables and lean protein such as chicken or fish. You should consume in a ratio of approximately 20% fats|40% carbohydrates|40%protein. Vegetables, sweet potatoes, brown rice or quinoa are examples of good carbohydrates. Chips, white bread, cookies and sweets/sugar are examples of bad carbohydrates. Limit your bad carbs, go wild with good carbs. "Life's Simple 7" Guidelines as per [place] [employer] These will help you reclaim your life after surgery and overhauler helper in your recovery, keeping in mind your restrictions. (1) Get Active. Physical activity can help people lose weight, control high blood pressure and cholesterol, feel emotionally better, and sleep better. (2) Control Cholesterol. Avoid a diet high in saturated fat, trans fat, & cholesterol. Limit whole milk & cream, ice cream, butter, egg yolks, processed meats (like sausage and hot dogs), and fatty meats. Choose healthy foods that are low in saturated fat, trans fat and cholesterol which include: Fruits and vegetables, fiber rich grain products (like whole grain pasta and brown rice), lean meat such as chicken, fish, nuts, seeds, and legumes. (3) Eat Better. Eat small portions. Shop at the grocery with a list and do not stray from it. Tips for a healthy diet include: Limit sodium intake to less than 1500mg daily, avoid prepackaged, processed, and fast foods, choose a diet rich in fruits, vegetables, and whole grain, high fiber foods, and limit saturated & cholesterol in your diet. (4) Manage Blood Pressure. If you have high blood pressure, you should have a cuff at home so that you can check your blood pressure regularly. Be sure you have a good cuff. An arm one is generally better than a wrist one. Bring the cuff to a doctor's appointment to validate that the measurements that your cuff are taking are accurate. Take your blood pressure twice daily when you are sitting down and relaxing. Record the numbers in a log and bring this log with you to your doctors' appointments. (5) Lose Weight if your BMI is above 25. A healthy BMI is between 19-25. To calculate Your BMI, you may use a Standard BMI Calculator on the NIH BMI website: <www.nhlbi.nih.gov/guidelines/obesity/BMI/bmicalc.htm>. Weigh oneself daily. If you are overweight, set a goal to lose weight. A pound a week loss if needed is a good target. (6) Reduce Blood Sugar. Limit foods and liquids with "added sugars." (Added sugars include sucrose, fructose, glucose, maltose, dextrose, high fructose corn syrup, corn syrup, concentrated fruit juice and honey). (7) Stop Smoking. If you smoke, quitting smoking is one of the best things that you can do for your health. Smoking increases your risk of heart attack, stroke, and peripheral vascular disease, which is a build-up of plaque in your arteries. Please discard all the cigarettes and lighters in your house. Have a plan for what you will do when you have the urge to smoke. Direct and second- hand smoke shortens your life as well as the lives of your family, friends and others around you. For your health and the health of those around you, please consider quitting! Proper Bending Body Mechanics: Maintain a wide stance with one foot slightly in front of the other. Keep your back straight. Bend utilizing the strength in your hips and knees. Do not bend at the waist. Maintain the lifted object at your waist-level close to your body. Avoid lifting weight that causes immediately pain or pain anywhere in the body afterwards. Smoking/Nicotine If there was ever one thing that you could do to increase your overall health, decrease your risk of cardiovascular problems by about 39% the second you make the choice, it is to STOP SMOKING. Your body's most instant gratification is the second you stop smoking. We have all heard the studies, read the articles but it is true, smoking is extremely bad for your overall health, and moreover it is detrimental to your bone health. Nicotine, IN ANY FORM, kills bone cells, prevents your body from healing fractures, and significantly prolongs healing after surgery. In spine surgery specifically, it increases your risk of not healing your bones to create a fusion and increases your risk of having a revision surgery due to this up to 60%. I know it is hard. I know it feels impossible. But there are ways. Take control of your life. We are here to help you through it. And when you are ready, ask us and we can direct you to help if you desire. Use the START Plan to Quit Smoking (please visit the Helpguide.org website listed below for more information): S = Set a quit date. Choose a date within the next 2 weeks, so you have enough time to prepare without losing your motivation to quit. If you mainly smoke at work, quit on the weekend, so you have a few days to adjust to the change. T = Tell family, friends, and co-workers that you plan to quit. Let your friends and family in on your plan to quit smoking and tell them you need their support and encouragement to stop. Look for a quit zachery who wants to stop smoking as well. You can help each other get through the rough times. A = Anticipate and plan for the challenges you'll face while quitting. Most people who begin smoking again do so within the first 3 months. You can help yourself make it through by preparing ahead for common challenges, such as nicotine withdrawal and cigarette cravings. R = Remove cigarettes and other tobacco products from your home, car, and work. Throw away all your cigarettes (no emergency pack!), lighters, ashtrays, and matches. Wash your clothes and freshen up anything that smells like smoke. Shampoo your car, clean your drapes and carpet, and steam your furniture. T = Talk to your doctor about getting help to quit. Your doctor can prescribe medication to help with withdrawal and suggest other alternatives. If you can't see a doctor, you can get many products over the counter at your local pharmacy or grocery store, including the nicotine patch, nicotine lozenges, and nicotine gum. Resources for Quitting Smoking: <https://www.[place].gov/documents/[facility]/Quit_Tobacco_Resources_for_patients_313 480_7.pdf> Supplementation: Take recommended dosages of Vitamin D and Calcium to help fortify your bones and help them to heal. See your health maintenance packet for dosages and recommended levels. DVT/VTE prophylaxis: You will be given compression stockings from the hospital. Wear these daily for the first two weeks after surgery. You may take them off at night. You may be prescribed a medication to help thin your blood. Take this as directed. If you are not prescribed this medication, early and frequent ambulation has been shown to be the best prophylaxis to deep vein thrombosis and sequelae related to this event. Discharge Disposition: HOME SELF-CARE
--- NOTE | 2023-08-19 13:54 | P.PN ---
Subjective Progress Note Date: 08/19/23 Principal diagnosis: L4-L5 spondylolisthesis; low back pain; lower extremity radiculopathy Patient seen at bedside this morning lying in semirecumbent position with dressing on the low back. Patient says she is looking forward with therapy this morning. Patient says he has urinated a little bit since miller was removed early this morning. Patient is hoping to go home later today. Patient denies any other issues at this time. Patient denies chest pain, fever, shortness levi ath, nausea, vomiting, change in vision, loss of bowel/bladder control. Objective - Vital Signs Vital signs: Vital Signs Temp 98.5 F 08/19/23 06:58 Pulse 67 08/19/23 07:15 Resp 18 08/19/23 07:15 BP 106/54 08/19/23 06:58 Pulse Ox 94 L 08/19/23 06:58 FiO2 Intake & Output 08/18/23 08/19/23 08/19/23 18:59 06:59 18:59 Intake Total 1550 922 Output Total 675 900 Balance 875 22 Weight 91.6 kg Intake: IV 1550 Oral 922 Output: Urine 625 900 Estimated Blood Loss 50 Other: Voiding Method Indwelling Catheter Indwelling Catheter Indwelling Catheter - Exam Dressings are clean, dry, intact. Mick are well and intact. Negative for any active drainage. Sensation is equal, symmetric combine intact throughout t he upper and lower extremities. There is some moderate tenderness to patient diffusely throughout the lumbar spine your incisions. Nontender to palpation throughout rest of exam. Patient has full range of motion throughout bilateral upper extremities on exam. There is limited range of motion in the bilateral hips and flexion/extension secondary to referred pain to the low back. Full range of motion throughout knees in flexion/extension and ankles and dorsiflexion/plantar flexion bilaterally. 4/5 in all major motor groups in bilateral lower extremities. 4+/5 in all major motor groups in bilateral upper extremities. Radial pulse intact, 2+ bilaterally. Cap refill under 3 seconds in digits upper extremity is. Negative Homans bilaterally. Negative Vicky. Negative clonus bilaterally. - Labs CBC & Chem 7: 08/19/23 05:59 08/19/23 05:59 Labs: Abnormal Lab Results - Last 24 Hours (Table) 08/18/23 08/18/23 08/18/23 Range/Units 14:21 16:34 20:15 WBC (3.8-10.6) k/uL Neutrophils # (1.3-7.7) k/uL Sodium (137-145) mmol/L Glucose (74-99) mg/dL POC Glucose (mg/dL) 218 H 232 H 149 H (70-110) mg/dL 08/19/23 08/19/23 08/19/23 Range/Units 05:44 05:59 05:59 WBC 12.2 H (3.8-10.6) k/uL Neutrophils # 9.0 H (1.3-7.7) k/uL Sodium 136 L (137-145) mmol/L Glucose 134 H (74-99) mg/dL POC Glucose (mg/dL) 138 H (70-110) mg/dL Assessment and Plan Assessment: 1. L4-L5 spondylolisthesis; low back pain; lower extremity radiculopathy - Postoperative day #1 status post L4-L5 MIS PLIF Plan: 1. L4-L5 spondylolisthesis; low back pain; lower extremity radiculopathy - barrera rgery performed yesterday, , 08/18/2023 L4-L5 MIS PLIF. Patient stable at bedside this morning. Plan discharge home today with home care. Prescription for walker signed. Pending completion with PT/OT discharge home. 2. Appreciate medical management 3. Pain management - [place]; oxycodone 4. GI prophylaxis - senna 5. DVT prophylaxis - mechanical 6. PT/OT - weightbearing as tolerated with walker as needed 7. Encourage incentive spirometer use 8. Discharge planning - home today Time with Patient: Less than 30
[2023-08-19 14:58] VITALS: BP 134/72; PULSE 73; TEMP 98.9
== END 2023-08-19 16:41 | disposition home or self-care (01) ==
LOC: OR 09:24 → 4SSUR 13:40 → OR 08-19 12:39 → 4SSUR 08-19 12:39
PROVIDERS: ADMIT Orthopaedic Surgery; ATTEND Orthopaedic Surgery
DX: M47.26 Other spondylosis with radiculopathy, lumbar region (principal); M43.16 Spondylolisthesis, lumbar region; M48.061 Spinal stenosis, lumbar region without neurogenic claudication; M51.16 Intervertebral disc disorders with radiculopathy, lumbar region; M62.58 Muscle wasting and atrophy, not elsewhere classified, other site; I25.10 Atherosclerotic heart disease of native coronary artery without angina pectoris; K21.9 Gastro-esophageal reflux disease without esophagitis; I25.2 Old myocardial infarction; F40.240 Claustrophobia; E78.5 Hyperlipidemia, unspecified; E11.9 Type 2 diabetes mellitus without complications; G47.30 Sleep apnea, unspecified; I10 Essential (primary) hypertension; Z95.5 Presence of coronary angioplasty implant and graft; Z87.891 Personal history of nicotine dependence; Z79.899 Other long term (current) drug therapy; Z79.82 Long term (current) use of aspirin; Z79.891 Long term (current) use of opiate analgesic; Z79.84 Long term (current) use of oral hypoglycemic drugs
CPT/HCPCS: 22633; 22853; 20931; 20936; 96365; 96366; 96367; 97161; 80048; 83735; 85025; 83036; 72100; 72131; G0378; C1713; C1734; J2250; J0330; J1100; J2710; J0690 ×2; J2405; J3010; J1170 ×3; J2704; J2371; J0665